=== PATIENT | female | born 2000 | race Caucasian/White ===

== ENCOUNTER 2023-04-16 17:54 | Emergency (ER) | payer OTHER, SELFPAY ==
--- NOTE | 2023-04-16 17:56 | ED.EAR ---
HPI - Ear Problem General Chief complaint: Ear Stated complaint: Ear pain Time Seen by Provider: 04/16/23 17:55 Source: patient Mode of arrival: ambulatory Limitations: no limitations History of Present Illness HPI Narrative: Lu is a 22-year-old female patient presenting to clinic today with complaints of ear pain that began just a few hours ago prior to arrival. She reports no known fever or chills. Related Data Home Medications Medication Instructions Recorded Confirmed clindamycin phosphate 1 % lotion 1 applic topical DAILY 09/15/21 11/26/22 tretinoin 0.05 % topical cream 1 applic topical QHS 09/15/21 11/26/22 spironolactone 25 mg tablet 25 mg PO BID 11/24/21 11/26/22 quetiapine 50 mg tablet 50 mg PO QHS 12/17/21 11/26/22 bupropion HCl 150 mg tablet,12 hr 300 mg PO DAILY 03/26/22 11/26/22 sustained-release buspirone 5 mg tablet 5 mg PO BID 03/26/22 11/26/22 Allergies Allergy/AdvReac Type Severity Reaction Status Date / Time No Known Allergies Allergy Verified 04/08/23 13:26 Review of Systems Review of Systems: Pertinent positives per HPI. Patient denies any fever, chills, rash, headache, visual changes, dizziness, cough, runny nose, sore throat, shortness of breath, chest pain, palpitations, nausea, vomiting, diarrhea, constipation, abdominal pain, or any urinary issues. PMFSH Past Medical History Medical History Abnormal Pap smear of cervix Acne Anxiety Closed right ankle fracture from cheer HPV (human papilloma virus) infection Hx of herpes genitalis Overdose by ingestion 10/14 - spironolactone overdose Family History Family History Grandparent Diabetes mellitus Hypertension Family history of rheumatoid arthritis Family history of elevated blood lipids Family history of anemia Family history of atrial fibrillation Family history of hypercholesterolemia Cancer Mother Family history of elevated blood lipids Family history of hypercholesterolemia Hypertension Depression Father Family history of elevated blood lipids Family history of hypercholesterolemia Hypertension Heart disease Social History Social History Social History: Single lives with with family Smoking status: Never smoker Tobacco type: e-cigarettes/vaping Second hand tobacco smoke exposure: No Alcohol intake: never Substance use: never Substance use type: does not use Lack of Transportation: YES Lack of Food: Never True Current Housing: I Have Housing Concerned About Future Housing: No Difficulty Paying Gas/Electric Bills: No Difficulty Paying for Meds: No Currently Unemployed: No Education: High School Diploma/GED Difficulty w/ Childcare or Family Care: No Living arrangements: with family Occupation/Education: student Additional occupation/education comments: [employer] Gender identity (if verbalized by the patient): Female Agree to blood products: Yes Comments At the time of my signature, I reviewed and agree with the nursing past medical, surgical, social, and family history. There is no relevant family history pertinent to the patient complaint. Exam Narrative: General: Well-developed, well nourished, in no apparent distress Head: Normocephalic, atraumatic Eyes: Pupils equally round and reactive to light bilaterally, EOM intact, sclera and conjunctive clear, no discharge, lids normal Ears: Right TM intact and clear, Left TM intact, bulging, red, ear canals clear, no drainage, grossly hearing normal. Nose: Nares patent, no discharge, no inflammation, no sinus tenderness. Mouth: Oropharynx without lesions or masses, good dentition, MMM. Neck: Supple, trachea midline, no enlargement of anterior or posterior cervical nodes, no thyroid masses or goiter palpable. Cardio: Re
[2023-04-16 18:01] VITALS: BP 140/86; PULSE 85; RESP 16; TEMP 36.4; O2SAT 100
== END 2023-04-16 18:11 | disposition home or self-care (01) ==
PROVIDERS: Emergency Provider Nurse Practitioner Family; PCP Family Medicine
DX: H66.92 Otitis media, unspecified, left ear (principal); F17.290 Nicotine dependence, other tobacco product, uncomplicated; F41.9 Anxiety disorder, unspecified
CPT/HCPCS: 99213; G0463